=== PATIENT | male | born 1980 | race Caucasian/White ===

== ENCOUNTER → 2020-03-18 | Outpatient (CLI) | payer OTHER ==
--- NOTE | 2020-03-18 08:22 | US ---
EXAMINATION TYPE: US carotid duplex BILAT DATE OF EXAM: 03/18/2020 COMPARISON: NONE CLINICAL HISTORY: R47.1 dysarthria. No HTN EXAM MEASUREMENTS: RIGHT: Peak Systolic Velocity (PSV) cm/sec ----- Right CCA: 130 ----- Right ICA: 107 ----- Right ECA: 126 ICA/CCA ratio: 0.8 RIGHT: End Diastole cm/sec ----- Right CCA: 38.1 ----- Right ICA: 25.1 ----- Right ECA: 21.7 LEFT: Peak Systolic Velocity (PSV) cm/sec ----- Left CCA: 96.0 ----- Left ICA: 101 ----- Left ECA: 106 ICA/CCA ratio: 1.1 LEFT: End Diastole cm/sec ----- Left CCA: 27.6 ----- Left ICA: 38.4 ----- Left ECA: 25.8 VERTEBRALS (direction of flow): Right Vertebral: Antegrade Left Vertebral: Antegrade Rhythm: Normal No wall thickening, significant stenosis or plaque visualized. Grayscale, color Doppler, spectral D oppler imaging performed of the carotid arteries. Waveform analysis does not show significant stenosis of the internal carotid arteries. IMPRESSION: No hemodynamic significant stenosis of the proximal internal carotid arteries by Doppler criteria, an indirect measurement of carotid stenosis
== END | disposition home or self-care (01) ==
LOC: RADUSWWP 06:45
PROVIDERS: ATTEND Family Medicine
DX: R47.1 Dysarthria and anarthria (principal); R41.841 Cognitive communication deficit
CPT/HCPCS: 93880

== ENCOUNTER → 2020-03-19 | Outpatient (CLI) | payer OTHER ==
--- NOTE | 2020-03-19 20:27 | ECHOF ---
Referral Reason:R47.1 MEASUREMENTS -------- HEIGHT: 170.2 cm WEIGHT: 81.6 kg BP: IVSd: 0.9 cm (0.6 - 1.1) LVIDd: 4.5 cm (3.9 - 5.3) LVPWd: 1.2 cm (0.6 - 1.1) IVSs: 1.7 cm LVIDs: 2.6 cm LVPWs: 1.8 cm RVIDd: 2.7 cm (< 3.3) Ao Diam: 2.8 cm (2.0 - 3.7) LA Diam: 2.8 cm (2.7 - 3.8) AV Cusp: 1.8 cm (1.5 - 2.6) EPSS: 1.4 cm MV E Tim: 0.93 m/s MV DecT: 209 ms MV A Tim: 0.81 m/s MV E/A Ratio: 1.15 RAP: 5.00 mmHg RVSP: 24.18 mmHg MV EF SLOPE: 70.80 mm/s (70 - 150) MV EXCURSION: 18.05 mm (> 18.000) FINDINGS -------- Sinus rhythm. This was a technically good study. The left ventricular size is normal. There is mild concentric left ventricular hypertrophy. Overa ll left ventricular systolic function is normal with, an EF between 55 - 60 %. The diastolic fillin g pattern is normal for the age of the patient 9.81. The right ventricle is normal in size. The left atrial size is normal. The right atrial size is normal. Interatrial and interventricular septum intact. The aortic valve is trileaflet and appears structurally normal. The mitral valve is normal. There is trace mitral regurgitation. The tricuspid valve appears structurally normal. Mild tricuspid regurgitation present. Right vent ricular systolic pressure is normal at < 35 mmHg. The pulmonic valve is normal. The aortic root size is normal. Normal inferior vena cava with normal inspiratory collapse consistent with estimated right atrial pre ssure of 5 mmHg. There is no pericardial effusion. CONCLUSIONS -------- 1. Sinus rhythm. 2. This was a technically good study. 3. The left ventricular size is normal. 4. There is mild concentric left ventricular hypertrophy. 5. Overall left ventricular systolic function is normal with, an EF between 55 - 60 %. 6. The diastolic filling pattern is normal for the age of the patient 9.81 7. The right ventricle is normal in size. 8. The left atrial size is normal. 9. The right atrial size is normal. 10. Interatrial and interventricular septum intact. 11. The aortic valve is trileaflet and appears structurally normal. 12. The mitral valve is normal. 13. There is trace mitral regurgitation. 14. The tricuspid valve appears structurally normal. 15. Mild tricuspid regurgitation present. 16. Right ventricular systolic pressure is normal at < 35 mmHg. 17. The pulmonic valve is normal. 18. The aortic root size is normal. 19. Normal inferior vena cava with normal inspiratory collapse consistent with estimated right atrial pressure of 5 mmHg. 20. There is no pericardial effusion. [employer] MANAGER: Candace Aguirre RDCS
== END | disposition home or self-care (01) ==
LOC: RADECHMAIN 10:31
PROVIDERS: ATTEND Family Medicine
DX: I07.1 Rheumatic tricuspid insufficiency (principal)
CPT/HCPCS: 93306

== ENCOUNTER 2020-08-13 10:45 | Emergency (ER) | payer OTHER ==
[2020-08-13 11:07] VITALS: BP 134/87; PULSE 108; RESP 18; TEMP 98
[2020-08-13] MEDS ORDERED: SODIUM CHLORIDE 0.9% 2,000 ML IV STA (11:54)
[2020-08-13 12:22] LABS: Appearance,Urine Clear (Clear); Bilirubin,Urine Negative (Negative); Blood,Urine Negative (Negative); Color,Urine Yellow; Glucose,Urine (UA) Negative (Negative); Ketones,Urine Negative (Negative); Leukocyte Esterase,Urine Negative (Negative); Nitrite,Urine Negative (Negative); PH, Urine 5.5 (5.0-8.0); Protein,Urine Negative (Negative); Specific Gravity,Urine 1.012 (1.001-1.035); Urobilinogen,Urine <2.0 mg/dL (<2.0)
[2020-08-13 12:23] LABS: Basophils # (A) 0.1 k/uL (0-0.2); Basophils % (A) 1 %; Eosinophils # (A) 0.2 k/uL (0-0.7); Eosinophils % (A) 2 %; HCT 45.7 % (39.0-53.0); HGB 14.6 gm/dL (13.0-17.5); Lymphocytes # (A) 1.1 k/uL (1.0-4.8); Lymphocytes % (A) 11 %; MCH 29.2 pg (25.0-35.0); MCV 91.3 fL (80.0-100.0); Mean Platelet Volume 9.2; Monocytes # (A) 0.5 k/uL (0-1.0); Monocytes % (A) 6 %; Neutrophils # (A) 7.4 k/uL (1.3-7.7); Neutrophils % (A) 79 %; Platelet Count 249 k/uL (150-450); RDW 15.2 % (11.5-15.5); WBC 9.3 k/uL (3.8-10.6)
[2020-08-13 12:34] LABS: ALT 22 U/L (4-49); AST 37 U/L (17-59); African American GFR (CKD) >90 (>60 ml/min/1.73 sqM); Albumin 4.1 g/dL (3.5-5.0); Alkaline Phosphatase 89 U/L (38-126); Amylase 94 U/L (30-110); Anion Gap 9 mmol/L; Blood Urea Nitrogen 10 mg/dL (9-20); Calcium 8.8 mg/dL (8.4-10.2); Carbon Dioxide 22 mmol/L (22-30); Chloride 107 mmol/L (98-107); Glucose 91 mg/dL (74-99); Non-African American GFR(CKD) 89 (>60 ml/min/1.73 sqM); Potassium 5.1 mmol/L (3.5-5.1); Sodium 138 mmol/L (137-145); Total Bilirubin 0.6 mg/dL (0.2-1.3); Total Protein 8.1 g/dL (6.3-8.2)
[2020-08-13] MEDS ORDERED: KETOROLAC 15 MG/ML 1 ML VIAL IVP STA (12:55)
--- NOTE | 2020-08-13 13:11 | XR ---
EXAMINATION TYPE: XR KUB DATE OF EXAM: 08/13/2020 12:32 PM CLINICAL HISTORY: Abdominal pain. Right-sided abdominal pain. History of stones. TECHNIQUE: Upright images of the abdomen and pelvis were obtained COMPARISON: None. FINDINGS: Nonspecific bowel gas pattern with a paucity of bowel gas. There is a 3 mm calcification ov erlying the right renal lower pole. Additional too millimeter and punctate densities overlying the ri ght kidney may be related to nephrolithiasis versus bowel contents. 2 mm calcification overlying the right hemipelvis. There is a 3 mm calcification overlying the left renal shadow. Lung bases are clear . No pneumoperitoneum. No organomegaly. Osseous structures are intact. IMPRESSION: 1. Bilateral nephrolithiasis as above. 2. 2 mm calcification over the right hemipelvis may represent urolithiasis versus phlebolith. 3. Nonspecific bowel gas pattern.
--- NOTE | 2020-08-13 13:20 | ED ---
Abdominal Pain HPI - General Chief Complaint: Abdominal Pain Stated Complaint: kidney stone Time Seen by Provider: 08/13/20 11:35 Source: patient, RN notes reviewed Mode of arrival: ambulatory Limitations: no limitations - History of Present Illness Initial Comments: This a 40-year-old male presents emergency Department chief complaint of severe right flank pain. Patient states that he passed a stone. He is ago and states that he thought it better but states ice really thirsty, having continuation of pain and just feels off. Patient states that he does have a long history of kidney stones no prior procedures was denies any history of gallbladder disease or prior appendectomy. Denies any change in bowel habits no diarrhea no constipation. Patient states that he is on Humira for rheumatoid arthritis. Patient denies any fevers or chills he states he's had recent nausea and vomiting. - Related Data Home Medications Medication Instructions Recorded Confirmed Ibuprofen [Motrin] 800 mg PO TID PRN 07/07/16 08/13/20 Omeprazole 40 mg PO AC-BRKFST 07/07/16 08/13/20 Adalimumab [Humira Crohn's] 40 mg SQ Q14D 08/13/20 08/13/20 Aspirin EC [Ecotrin] 325 mg PO DAILY 08/13/20 08/13/20 Cholecalciferol [Vitamin D3 (25 1,000 unit PO DAILY 08/13/20 08/13/20 Mcg = 1000 Iu)] Ipratropium-Albuterol Nebulize 3 ml INHALATION RT-Q4H PRN 08/13/20 08/13/20 [Duoneb 0.5 mg-3 mg/3 ml Soln] Levothyroxine Sodium [Synthroid] 150 mcg PO DAILY 08/13/20 08/13/20 Sildenafil Citrate [Viagra] 25 mg PO DAILY PRN 08/13/20 08/13/20 Vitamin B Complex 1 cap PO DAILY 08/13/20 08/13/20 Previous Rx's Medication Instructions Recorded Ibuprofen [Motrin] 600 mg PO Q8HR PRN #20 tab 08/13/20 Ondansetron Odt [Zofran Odt] 4 mg PO Q8HR PRN #10 tab 08/13/20 Tamsulosin [Flomax] 0.4 mg PO DAILY #7 cap 08/13/20 Allergies Allergy/AdvReac Type Severity Reaction Status Date / Time No Known Allergies Allergy Verified 08/13/20 12:35 Review of Systems ROS Statement: Those systems with pertinent positive or pertinent negative responses have been documented in the HPI. ROS Other: All systems not noted in ROS Statement are negative. Past Medical History Past Medical History: GERD/Reflux, Respiratory Disorder, Rheumatoid Arthritis (RA), Thyroid Disorder Additional Past Medical History / Comment(s): LUPUS, RESTRICTED LUNG DISEASE, RHEUMATOID ARTHRITIS, HYPOTHYROID. , INSOMNIA. History of Any Multi-Drug Resistant Organisms: None Reported Past Surgical History: No Surgical Hx Reported Additional Past Surgical History / Comment(s): EGD Past Anesthesia/Blood Transfusion Reactions: No Reported Reaction Past Psychological History: Anxiety Smoking Status: Former smoker Past Alcohol Use History: Occasional Past Drug Use History: None Reported - Past Family History Mother Family Medical History: No Reported History General Exam Limitations: no limitations General appearance: alert, in no apparent distress Head exam: Present: atraumatic, normocephalic, normal inspection Eye exam: Present: normal appearance, PERRL, EOMI. Absent: scleral icterus, conjunctival injection, periorbital swelling ENT exam: Present: normal exam, mucous membranes moist Neck exam: Present: normal inspection, full ROM. Absent: tenderness, meningismus, lymphadenopathy Respiratory exam: Present: normal lung sounds bilaterally. Absent: respiratory distress, wheezes, rales, rhonchi, stridor Cardiovascular Exam: Present: regular rate, normal rhythm, normal heart sounds. Absent: systolic murmur, diastolic murmur, rubs, gallop, clicks GI/Abdominal exam: Present: soft, tenderness (Mild right-sided), normal bowel sounds. Absent: distended, guarding, rebound, rigid Back exam: Absent: CVA tenderness (R), CVA tenderness (L) Skin exam: Present: warm, dry, intact, normal color. Absent: rash Course Vital Signs 08/13/20 11:04 Temperature 98.0 F Pulse Rate 108 H Respiratory 18 Rate Blood Pressure 134/87 O2 Sat by Pulse 96 Oximetry Medical Decision Making - Medical Decision Making This a 40-year-old male presented emergency from for right-sided pain. Labs urinalysis unremarkable patient does need to have pain CT is obtained which shows evidence of 45, UVJ stone with no delay in pain. Patient states has questionable minimal changes though patient has no acute respiratory symptoms. Patient afebrile. Patient has underlying ongoing disease. Patient will be discharged in stable condition with pain medication will follow-up with urology and return for any worsening symptoms. - Lab Data Result diagrams: 08/13/20 12:10 08/13/20 12:10 Lab Results 08/13/20 08/13/20 08/13/20 Range/Units 12:10 12:10 12:10 WBC 9.3 (3.8-10.6) k/uL RBC 5.00 (4.30-5.90) m/uL Hgb 14.6 (13.0-17.5) gm/dL Hct 45.7 (39.0-53.0) % MCV 91.3 (80.0-100.0) fL MCH 29.2 (25.0-35.0) pg MCHC 32.0 (31.0-37.0) g/dL RDW 15.2 (11.5-15.5) % Plt Count 249 (150-450) k/uL Neutrophils % 79 % Lymphocytes % 11 % Monocytes % 6 % Eosinophils % 2 % Basophils % 1 % Neutrophils # 7.4 (1.3-7.7) k/uL Lymphocytes # 1.1 (1.0-4.8) k/uL Monocytes # 0.5 (0-1.0) k/uL Eosinophils # 0.2 (0-0.7) k/uL Basophils # 0.1 (0-0.2) k/uL Sodium 138 (137-145) mmol/L Potassium 5.1 (3.5-5.1) mmol/L Chloride 107 (98-107) mmol/L Carbon Dioxide 22 (22-30) mmol/L Anion Gap 9 mmol/L BUN 10 (9-20) mg/dL Creatinine 1.05 (0.66-1.25) mg/dL Est GFR (CKD-EPI)AfAm >90 (>60 ml/min/1.73 sqM) Est GFR (CKD-EPI)NonAf 89 (>60 ml/min/1.73 sqM) Glucose 91 (74-99) mg/dL Calcium 8.8 (8.4-10.2) mg/dL Total Bilirubin 0.6 (0.2-1.3) mg/dL AST 37 (17-59) U/L ALT 22 (4-49) U/L Alkaline Phosphatase 89 (38-126) U/L Total Protein 8.1 (6.3-8.2) g/dL Albumin 4.1 (3.5-5.0) g/dL Amylase 94 (30-110) U/L Lipase 73 (23-300) U/L Urine Color Yellow Urine Appearance Clear (Clear) Urine pH 5.5 (5.0-8.0) Ur Specific [place] 1.012 (1.001-1.035) Urine Protein Negative (Negative) Urine Glucose (UA) Negative (Negative) Urine Ketones Negative (Negative) Urine Blood Negative (Negative) Urine Nitrite Negative (Negative) Urine Bilirubin Negative (Negative) Urine Urobilinogen <2.0 (<2.0) mg/dL Ur Leukocyte Esterase Negative (Negative) Disposition Clinical Impression: Right ureteral calculus Disposition: HOME SELF-CARE Condition: Stable Instructions (If sedation given, give patient instructions): Kidney Stones (ED) Additional Instructions: Please return to the Emergency Department if symptoms worsen or any other concerns. Prescriptions: Tamsulosin [Flomax] 0.4 mg PO DAILY #7 cap Ibuprofen [Motrin] 600 mg PO Q8HR PRN #20 tab PRN Reason: Pain Ondansetron Odt [Zofran Odt] 4 mg PO Q8HR PRN #10 tab PRN Reason: Nausea Is patient prescribed a controlled substance at d/c from ED?: No Referrals: Tolu Tidwell Jr, DO [Primary Care Provider] - 1-2 days Steven Chappell MD [STAFF PHYSICIAN] - 1-2 days Time of Disposition: 14:45
--- NOTE | 2020-08-13 14:42 | CT ---
EXAMINATION TYPE: CT abdomen pelvis w con DATE OF EXAM: 08/13/2020 COMPARISON: Same day abdominal x-ray. HISTORY: Kidney stone CT DLP: 976.2 mGycm, Automated Exposure Control for Dose Reduction was Utilized. CONTRAST: CT scan of the abdomen and pelvis is performed with oral and with IV Contrast, patient injected with 100 mL of Isovue 300. FINDINGS: LUNG BASES: Areas of reticulation and groundglass opacities in the lung bases more prominent posterio rly. LIVER/GB: No significant abnormality is appreciated. PANCREAS: No significant abnormality is seen. SPLEEN: Spleen size upper limits of normal at 13.0 cm long axis coronal image 59. ADRENALS: No significant abnormality is seen. KIDNEYS: Small nonobstructing renal calculi noted bilaterally. Proximally 10 scattered calculi throug hout the right kidney to 4 to 5 mm in size lower pole level axial image 46. Approximately 5-8 small c alculi measuring up to 3 to 4 mm in size scattered throughout the left kidney. Symmetric cortical upt vinicius and excretion with perhaps mild right-sided hydronephrosis noted. There is 4 to 5 mm distal right ureteral calculus axial image 79 present. BOWEL: No suspicious small or large bowel dilatation. Gas filled dilated distal esophagus with abru pt transition at the diaphragmatic hiatus. PROSTATE/SEMINAL VESICLES: No gross abnormality seen. LYMPH NODES: No greater than 1cm abdominal or pelvic lymph nodes are appreciated. OSSEOUS STRUCTURES: Transitional-type vertebra at lumbosacral junction. OTHER: No significant additional abnormality is seen. IMPRESSION: 1. There is 4 to 5 mm distal right ureter calculus right before UVJ causing mild to minimal right-emily ed hydronephrosis but not delayed excretion. There are multiple small nonobstructing renal calculi bi laterally confirmed. 2. Areas of reticulation and increased groundglass opacity in the bilateral lower lungs, correlate fo r acute infectious process. Gas-filled dilated distal esophagus with abrupt transition at the diaphra gmatic hiatus. Consider underlying stricture and aspiration pneumonia. Correlate clinically. Consider endoscopy follow-up.
[2020-08-13] MEDS ORDERED: ACET/COD 300 MG/30 MG STARTER PACK 6 TAB BTL PO STA (14:45)
== END 2020-08-13 15:17 | disposition home or self-care (01) ==
LOC: EC 10:45
DX: N13.2 Hydronephrosis with renal and ureteral calculous obstruction (principal); K21.9 Gastro-esophageal reflux disease without esophagitis; E07.9 Disorder of thyroid, unspecified; Z79.890 Hormone replacement therapy; Z79.82 Long term (current) use of aspirin; Z79.899 Other long term (current) drug therapy; Z87.891 Personal history of nicotine dependence
CPT/HCPCS: 36415; 80053; 82150; 83690; 85025; 81003; 74018; 74177; 99284; 96374; 96361 ×3; J1885; Q9967

== ENCOUNTER 2020-09-21 09:53 | Inpatient (IN) | payer OTHER ==
[2020-09-21] MEDS ORDERED: methylPREDNISolone SOD SUCCI 125 MG/2 ML VIAL IV STA (10:23)
[2020-09-21] MEDS ORDERED: IPRATROPIUM-ALBUTEROL 3 ML NEB INHALATION STA (10:23)
--- NOTE | 2020-09-21 10:40 | ED ---
SOB HPI - General Chief Complaint: Shortness of Breath Stated Complaint: SOB Time Seen by Provider: 09/21/20 10:10 Source: patient Mode of arrival: ambulatory Limitations: no limitations - History of Present Illness Initial Comments: Patient is a 40-year-old male, with history of lupus, RA, scleroderma, asthma, presenting to the emergency Department with complaints of shortness of breath 3 days. Patient states he's been trying his at home nebulizer treatments without much improvement in his symptoms. He denies having a fever but has been having chills. He denies any abdominal pain, nausea, vomiting, diarrhea, chest pains. He is currently speaking in about 4-5 word sentences, in mild distress. Patient denies any sick contacts. Patient denies any other complaints at this time.Upon arrival to the ER, patient's temperature is 99.2, pulse 120, respiratory rate of 20, BP is 138/95, 92% room air. - Related Data Home Medications Medication Instructions Recorded Confirmed Omeprazole 40 mg PO AC-BRKFST 07/07/16 09/21/20 Adalimumab [Humira Crohn's] 40 mg SQ Q14D 08/13/20 09/21/20 Ipratropium-Albuterol Nebulize 3 ml INHALATION RT-Q4H PRN 08/13/20 09/21/20 [Duoneb 0.5 mg-3 mg/3 ml Soln] Levothyroxine Sodium [Synthroid] 150 mcg PO DAILY 08/13/20 09/21/20 Sildenafil Citrate [Viagra] 25 mg PO DAILY PRN 08/13/20 09/21/20 Albuterol Nebulized [Ventolin 2.5 mg INHALATION RT-Q6H PRN 09/21/20 09/21/20 Nebulized] Albuterol Sulfate [Proair Hfa] 1 - 2 puff INHALATION RT-QID PRN 09/21/2009/21 Cranberry Fruit Extract [Cranberry] 500 mg PO DAILY 09/21/20 09/21/20 Thiamine [Vitamin B-1] 50 mg PO DAILY 09/21/20 09/21/20 Previous Rx's Medication Instructions Recorded Ibuprofen [Motrin] 600 mg PO Q8HR PRN #20 tab 08/13/20 Allergies Allergy/AdvReac Type Severity Reaction Status Date / Time No Known Allergies Allergy Verified 09/21/20 11:31 Review of Systems ROS Statement: Those systems with pertinent positive or pertinent negative responses have been documented in the HPI. ROS Other: All systems not noted in ROS Statement are negative. Past Medical History Past Medical History: GERD/Reflux, Respiratory Disorder, Rheumatoid Arthritis (RA), Thyroid Disorder Additional Past Medical History / Comment(s): LUPUS, RESTRICTED LUNG DISEASE, RHEUMATOID ARTHRITIS, HYPOTHYROID. , INSOMNIA. History of Any Multi-Drug Resistant Organisms: None Reported Past Surgical History: No Surgical Hx Reported Additional Past Surgical History / Comment(s): EGD Past Anesthesia/Blood Transfusion Reactions: No Reported Reaction Past Psychological History: Anxiety Smoking Status: Former smoker Past Alcohol Use History: Occasional Past Drug Use History: None Reported - Past Family History Mother Family Medical History: No Reported History General Exam - General Exam Comments Initial Comments: GENERAL: Patient is well-developed and well-nourished. Patient is nontoxic and in [id number] distress, increases with speaking. HEAD: Atraumatic, normocephalic. EYES: Pupils equal round and reactive to light, extraocular movements intact, sclera anicteric, conjunctiva are normal. Eyelids were unremarkable. ENT: TMs normal, nares patent, oropharynx clear without exudates. Moist mucous membranes. NECK: Normal range of motion, supple without lymphadenopathy or JVD. LUNGS: Mild labored respirations. Decreased air movement, No wheezes rales or rhonchi. HEART: Tachycardia rate and rhythm without murmurs, rubs or gallops. ABDOMEN: Soft, nontender, normoactive bowel sounds. No guarding, no rebound. No masses appreciated. : Deferred MUSCULOSKELETAL: Normal extremities with adequate strength and normal range of motion, no pitting or edema. No clubbing or cyanosis. NEUROLOGICAL: Patient is alert and oriented x 3. Motor and sensory are also intact. Cranial nerves II through XII grossly intact. Symmetrical smile. Normal speech, normal gait. PSYCH: Normal mood, normal affect. SKIN: Warm, Dry, normal turgor, no rashes or lesions noted. Limitations: no limitations Course Vital Signs 09/21/20 09/21/20 09/21/20 10:00 10:37 10:39 Temperature 99.2 F Pulse Rate 120 H 113 H Respiratory 20 22 Rate Blood Pressure 138/95 O2 Sat by Pulse 92 L Oximetry 09/21/20 09/21/20 10:55 13:07 Temperature Pulse Rate 110 H 86 Respiratory 16 Rate Blood Pressure 138/60 O2 Sat by Pulse 96 Oximetry Medical Decision Making - Medical Decision Making Patient is a 40-year-old male with history of lupus, asthma, sclera derma, presents with shortness of breath or sitting 3 days. He did arrive tachycardia, 92% on room air, afebrile. When the patient arrived he was in mild distress, increases when trying to speak long sentences. Breathing treatment did help slightly. Patient's white count is 21,000, he denies any recent steroid use. D-dimer is normal, lactic acid is 1.3, CRP is 47, LDH is 817, rapid Covid is negative, influenza is negative. Chest x-ray shows low lung volumes with faint multifocal bilateral opacities, correlate for Covid 19 infection. Patient continues to be slightly hypoxic, 98-92% on room air, which did start 2 L of oxygen on him. Patient will be admitted for dyspnea, suspected Covid 19 pneumonia, hypoxia. I did give a dose of Rocephin and azithromycin. Patient accepted by Dr. Calderon. Case discussed with Dr. Tobar. - Lab Data Result diagrams: 09/21/20 10:24 09/21/20 10:24 Lab Results 09/21/20 09/21/20 09/21/20 Range/Units 10:24 10:24 10:24 WBC 21.6 H (3.8-10.6) k/uL RBC 5.44 (4.30-5.90) m/uL Hgb 15.7 (13.0-17.5) gm/dL Hct 47.0 (39.0-53.0) % MCV 86.4 (80.0-100.0) fL MCH 28.9 (25.0-35.0) pg MCHC 33.4 (31.0-37.0) g/dL RDW 14.6 (11.5-15.5) % Plt Count 322 (150-450) k/uL MPV 8.7 Neutrophils % 91 % Lymphocytes % 5 % Monocytes % 3 % Eosinophils % 1 % Basophils % 1 % Neutrophils # 19.6 H (1.3-7.7) k/uL Lymphocytes # 1.0 (1.0-4.8) k/uL Monocytes # 0.6 (0-1.0) k/uL Eosinophils # 0.1 (0-0.7) k/uL Basophils # 0.1 (0-0.2) k/uL PT (9.0-12.0) sec INR (<1.2) APTT (22.0-30.0) sec D-Dimer (<0.60) mg/L FEU Sodium 135 L (137-145) mmol/L Potassium 4.6 (3.5-5.1) mmol/L Chloride 103 (98-107) mmol/L Carbon Dioxide 21 L (22-30) mmol/L Anion Gap 11 mmol/L BUN 14 (9-20) mg/dL Creatinine 1.15 (0.66-1.25) mg/dL Est GFR (CKD-EPI)AfAm >90 (>60 ml/min/1.73 sqM) Est GFR (CKD-EPI)NonAf 80 (>60 ml/min/1.73 sqM) Glucose 125 H (74-99) mg/dL Plasma Lactic Acid Karl 1.3 (0.7-2.0) mmol/L Calcium 9.9 (8.4-10.2) mg/dL Magnesium 1.5 L (1.6-2.3) mg/dL Total Bilirubin 1.3 (0.2-1.3) mg/dL AST 40 (17-59) U/L ALT 28 (4-49) U/L Alkaline Phosphatase 96 (38-126) U/L Lactate Dehydrogenase 817 H (313-618) U/L C-Reactive Protein 47.6 H (<10.0) mg/L Total Protein 8.9 H (6.3-8.2) g/dL Albumin 4.5 (3.5-5.0) g/dL Coronavirus (PCR) (Not Detectd) Influenza Type A RNA (Not Detectd) Influenza Type B (PCR) (Not Detectd) 09/21/20 09/21/20 09/21/20 Range/Units 10:24 10:25 10:33 WBC (3.8-10.6) k/uL RBC (4.30-5.90) m/uL Hgb (13.0-17.5) gm/dL Hct (39.0-53.0) % MCV (80.0-100.0) fL MCH (25.0-35.0) pg MCHC (31.0-37.0) g/dL RDW (11.5-15.5) % Plt Count (150-450) k/uL MPV Neutrophils % % Lymphocytes % % Monocytes % % Eosinophils % % Basophils % % Neutrophils # (1.3-7.7) k/uL Lymphocytes # (1.0-4.8) k/uL Monocytes # (0-1.0) k/uL Eosinophils # (0-0.7) k/uL Basophils # (0-0.2) k/uL PT 10.8 (9.0-12.0) sec INR 1.0 (<1.2) APTT 27.3 (22.0-30.0) sec D-Dimer 0.48 (<0.60) mg/L FEU Sodium (137-145) mmol/L Potassium (3.5-5.1) mmol/L Chloride (98-107) mmol/L Carbon Dioxide (22-30) mmol/L Anion Gap mmol/L BUN (9-20) mg/dL Creatinine (0.66-1.25) mg/dL Est GFR (CKD-EPI)AfAm (>60 ml/min/1.73 sqM) Est GFR (CKD-EPI)NonAf (>60 ml/min/1.73 sqM) Glucose (74-99) mg/dL Plasma Lactic Acid Karl (0.7-2.0) mmol/L Calcium (8.4-10.2) mg/dL Magnesium (1.6-2.3) mg/dL Total Bilirubin (0.2-1.3) mg/dL AST (17-59) U/L ALT (4-49) U/L Alkaline Phosphatase (38-126) U/L Lactate Dehydrogenase (313-618) U/L C-Reactive Protein (<10.0) mg/L Total Protein (6.3-8.2) g/dL Albumin (3.5-5.0) g/dL Coronavirus (PCR) Not Detected (Not Detectd) Influenza Type A RNA Not Detected (Not Detectd) Influenza Type B (PCR) Not Detected (Not Detectd) - EKG Data EKG Comments: Sinus tach otherwise a normal ECG, there are Q waves in lead 3 and s waves lead 1. Ventricular rate 1:15, KS interval 152, QT 320. Disposition Clinical Impression: Suspected COVID-19 virus infection, Pneumonia, Hypoxic, Leukocytosis Disposition: ADMITTED IP TO THIS HOSP Condition: Good Decision Date: 09/21/20 Decision Time: 12:27
[2020-09-21 10:51] LABS: Basophils # (A) 0.1 k/uL (0-0.2); Basophils % (A) 1 %; Eosinophils # (A) 0.1 k/uL (0-0.7); Eosinophils % (A) 1 %; HGB 15.7 gm/dL (13.0-17.5); Lymphocytes % (A) 5 %; MCH 28.9 pg (25.0-35.0); MCHC 33.4 g/dL (31.0-37.0); MCV 86.4 fL (80.0-100.0); Mean Platelet Volume 8.7; Monocytes # (A) 0.6 k/uL (0-1.0); Monocytes % (A) 3 %; Neutrophils # (A) 19.6 k/uL (1.3-7.7); Neutrophils % (A) 91 %; Platelet Count 322 k/uL (150-450); RBC 5.44 m/uL (4.30-5.90); RDW 14.6 % (11.5-15.5); WBC 21.6 k/uL (3.8-10.6)
--- NOTE | 2020-09-21 10:59 | XR ---
EXAMINATION TYPE: XR chest 2V DATE OF EXAM: 09/21/2020 COMPARISON: NONE HISTORY: Shortness of breath for 3 days. History of asthma and lupus. TECHNIQUE: Frontal and lateral views of the chest are obtained. FINDINGS: There are low lung volumes with faint bilateral multifocal opacities. No pleural effusion or pneumothorax seen bilaterally. The cardiac silhouette size is within normal limits. The osseous structures are intact. IMPRESSION: Low lung volumes with faint multifocal bilateral opacities, correlate for covid-19 infec tion.
[2020-09-21 11:05] LABS: ALT 28 U/L (4-49); AST 40 U/L (17-59); African American GFR (CKD) >90 (>60 ml/min/1.73 sqM); Albumin 4.5 g/dL (3.5-5.0); Alkaline Phosphatase 96 U/L (38-126); Anion Gap 11 mmol/L; Blood Urea Nitrogen 14 mg/dL (9-20); Calcium 9.9 mg/dL (8.4-10.2); Carbon Dioxide 21 mmol/L (22-30); Chloride 103 mmol/L (98-107); Glucose 125 mg/dL (74-99); LDH 817 U/L (313-618); Magnesium 1.5 mg/dL (1.6-2.3); Non-African American GFR(CKD) 80 (>60 ml/min/1.73 sqM); Potassium 4.6 mmol/L (3.5-5.1); Sodium 135 mmol/L (137-145); Total Bilirubin 1.3 mg/dL (0.2-1.3); Total Protein 8.9 g/dL (6.3-8.2)
[2020-09-21 11:27] LABS: D-Dimer 0.48 mg/L FEU (<0.60); Partial Thromboplastin Time 27.3 sec (22.0-30.0); Prothrombin Time 10.8 sec (9.0-12.0)
[2020-09-21 11:58] LABS: C Reactive Protein 47.6 mg/L (<10.0)
[2020-09-21] MEDS ORDERED: PNEUMONIA PROTOCOL UTILIZED 1 EACH MISC PO PRN (12:23)
[2020-09-21] MEDS ORDERED: cefTRIAXone IN SWFI 1,000 MG/10 ML SYRINGE IVP STA (12:35)
[2020-09-21] MEDS ORDERED: AZITHROMYCIN 500 MG TAB PO STA (12:35)
[2020-09-21 16:35] LABS: Ferritin 78.1 ng/mL (22.0-322.0)
[2020-09-21] MEDS ORDERED: ACETAMINOPHEN TAB 325 MG TAB PO PRN (19:59)
[2020-09-21] MEDS: ENOXAPARIN 40 MG/0.4 ML SYRINGE SQ SCH (20:08)
[2020-09-21] MEDS: ALBUTEROL NEBULIZED 2.5 MG/3 ML INHALATION PRN (20:38)
[2020-09-22] MEDS ORDERED: LEVOTHYROXINE 75 MCG TAB PO SCH (06:00)
[2020-09-22 06:24] LABS: Basophils % (A) 0 %; Eosinophils % (A) 0 %; HCT 46.6 % (39.0-53.0); HGB 15.2 gm/dL (13.0-17.5); Lymphocytes # (A) 1.1 k/uL (1.0-4.8); Lymphocytes % (A) 10 %; MCH 28.6 pg (25.0-35.0); MCHC 32.7 g/dL (31.0-37.0); MCV 87.6 fL (80.0-100.0); Mean Platelet Volume 8.2; Monocytes # (A) 0.4 k/uL (0-1.0); Monocytes % (A) 4 %; Neutrophils # (A) 9.5 k/uL (1.3-7.7); Neutrophils % (A) 84 %; Platelet Count 300 k/uL (150-450); RBC 5.32 m/uL (4.30-5.90); RDW 14.6 % (11.5-15.5); WBC 11.3 k/uL (3.8-10.6)
[2020-09-22 06:39] LABS: D-Dimer 0.36 mg/L FEU (<0.60)
--- NOTE | 2020-09-22 07:49 | XR ---
EXAMINATION TYPE: XR chest 1V portable DATE OF EXAM: 09/22/2020 Comparison: 09/21/2020 Clinical History: 40-year-old male Pneumonia Findings: Heart normal size. Aorta and pulmonary vasculature within normal limits. Subtle patchy peripheral den sities and also at the medial right base, not significantly changed. Impression: Subtle patchy densities, right greater than left, not significantly changed.
[2020-09-22 08:15] VITALS: BP 117/76; RESP 16; TEMP 97.9
[2020-09-22] MEDS ORDERED: dexAMETHasone 2 MG TAB PO SCH (09:00)
[2020-09-22] MEDS: ENOXAPARIN 40 MG/0.4 ML SYRINGE SQ SCH (09:06)
[2020-09-22 10:08] LABS: Ferritin 80.4 ng/mL (22.0-322.0)
[2020-09-22] MEDS: ALBUTEROL NEBULIZED 2.5 MG/3 ML INHALATION PRN (11:18)
[2020-09-22 11:33] VITALS: PULSE 87
[2020-09-22 11:33] LABS: African American GFR (CKD) 96.8 (60.0-200.0); Albumin 4.4 g/dL (3.80-4.90); Albumin/Globulin Ratio 1.26 (1.60-3.17); Anion Gap 9.5 mmol/L (4.00-12.00); BUN/Creat Ratio 21.82 Ratio (12.00-20.00); C Reactive Protein 5.8 mg/dL (0.0-0.8); Carbon Dioxide 22.5 mmol/L (21.6-31.8); Globulin 3.5 g/dL (1.6-3.3); Non-African American GFR(CKD) 83.5 (60.0-200.0); Potassium 4.7 mmol/L (3.5-5.5); Total Bilirubin 0.4 mg/dL (0.3-1.2); Total Protein 7.9 g/dL (6.2-8.2)
--- NOTE | 2020-09-22 11:54 | P.CNPUL ---
History of Present Illness Reason for consult: dyspnea, cough, asthma, COPD Chief complaint: Shortness of breath and cough History of present illness: This is a 40-year-old male with history of chronic persistent severe asthma has been on nebulizer treatment at home patient is a small dose of maintenance prednisone most of the time, patient has severe scleroderma rheumatoid arthritis and also history of lupus, patient presented into the hospital with 3 day history of increasing shortness of breath and wheezing, unable to talk long sentences, patient was admitted into the hospital started on IV steroids and now this morning feeling much better afebrile hemodynamics stable, his white cell count on arrival was 21,000 now down to 11,000, normal d-dimer, chemistries stable sodium is slightly on the lower side, inflammation she parameters stable LDH slightly high came down to two thirds etc. barnett virus PCR negative influenza A and B- as well patient does have a lung fibrosis which is seen on the x-ray involving basal area appears to be stable not significantly changed compared to prior x-ray Review of Systems All systems: negative Past Medical History Past Medical History: Asthma, GERD/Reflux, Respiratory Disorder, Rheumatoid Arthritis (RA), Thyroid Disorder Additional Past Medical History / Comment(s): LUPUS, RESTRICTED LUNG DISEASE, RHEUMATOID ARTHRITIS, HYPOTHYROID. , INSOMNIA, Heart cath (no stents), scleroderma. History of Any Multi-Drug Resistant Organisms: None Reported Past Surgical History: No Surgical Hx Reported Additional Past Surgical History / Comment(s): EGD Past Anesthesia/Blood Transfusion Reactions: No Reported Reaction Smoking Status: Former smoker - Past Family History Mother Family Medical History: No Reported History Medications and Allergies Home Medications Medication Instructions Recorded Confirmed Type Omeprazole 40 mg PO AC-BRKFST 07/07/16 09/21/20 History Adalimumab [Humira Crohn's] 40 mg SQ Q14D 08/13/20 09/21/20 History Ibuprofen [Motrin] 600 mg PO Q8HR PRN #20 tab 08/13/20 09/21/20 Rx Ipratropium-Albuterol Nebulize 3 ml INHALATION RT-Q4H PRN 08/13/20 09/21/20 History [Duoneb 0.5 mg-3 mg/3 ml Soln] Levothyroxine Sodium [Synthroid] 150 mcg PO DAILY 08/13/20 09/21/20 History Sildenafil Citrate [Viagra] 25 mg PO DAILY PRN 08/13/20 09/21/20 History Albuterol Nebulized [Ventolin 2.5 mg INHALATION RT-Q6H PRN 09/21/20 09/21/20 History Nebulized] Albuterol Sulfate [Proair Hfa] 1 - 2 puff INHALATION RT-QID PRN 09/21/20 09/21/20 History Cranberry Fruit Extract [Cranberry] 500 mg PO DAILY 09/21/20 09/21/20 History Thiamine [Vitamin B-1] 50 mg PO DAILY 09/21/20 09/21/20 History Allergies Allergy/AdvReac Type Severity Reaction Status Date / Time No Known Allergies Allergy Verified 09/21/20 11:31 Physical Exam Vitals: Vital Signs Temp Pulse Pulse Resp BP BP Pulse Ox 09/22/20 11:31 87 09/22/20 11:18 84 94 L 09/22/20 08:00 97.9 F 83 16 117/76 92 L 09/22/20 02:00 97.7 F 90 20 130/91 91 L 09/21/20 20:48 109 H 09/21/20 20:40 109 H 09/21/20 20:00 97.9 F 109 H 20 127/85 92 L 09/21/20 17:15 97.6 F 104 H 18 138/94 94 L 09/21/20 13:07 86 16 138/60 96 Intake and Output 09/21/20 09/22/20 09/22/20 22:59 06:59 14:59 Other: Voiding Method Toilet # Voids 2 # Bowel Movements 1 Weight 79.832 kg - Constitutional General appearance: average body habitus, cooperative, disheveled - EENT Eyes: PERRLA Ears: bilateral: normal - Neck Neck: normal ROM Carotids: bilateral: upstroke normal Thyroid: bilateral: normal size - Respiratory Respiratory: bilateral: diminished, rales (Basal dry Rales), prolonged expir ation - Cardiovascular Heart sounds: normal: S1, S2 - Neurologic Neurologic: CNII-XII intact - Musculoskeletal Musculoskeletal: gait normal, generalized weakness, strength equal bilaterally - Psychiatric Psychiatric: A&O x's 3, appropriate affect, intact judgment & insight Results - Laboratory Findings CBC and BMP: 09/22/20 06:02 09/22/20 06:02 PT/INR, D-dimer PT 10.0 sec (9.0-12.0) 09/22/20 06:02 INR 1.0 (<1.2) 09/22/20 06:02 D-Dimer 0.36 mg/L FEU (<0.60) 09/22/20 06:02 Abnormal lab findings: Abnormal Labs 09/21/20 09/21/20 09/21/20 10:24 10:24 10:24 WBC 21.6 H Neutrophils # 19.6 H Fibrinogen Sodium 135 L Carbon Dioxide 21 L BUN/Creatinine Ratio Glucose 125 H Magnesium 1.5 L Lactate Dehydrogenase 817 H Creatine Kinase C-Reactive Protein 47.6 H Total Protein 8.9 H Globulin Albumin/Globulin Ratio Procalcitonin 0.20 H 09/22/20 09/22/20 09/22/20 06:02 06:02 06:02 WBC 11.3 H Neutrophils # 9.5 H Fibrinogen 520 H Sodium 134 L Carbon Dioxide BUN/Creatinine Ratio 21.82 H Glucose 137 H Magnesium Lactate Dehydrogenase Creatine Kinase 312 H C-Reactive Protein 5.8 H Total Protein Globulin 3.5 H Albumin/Globulin Ratio 1.26 L Procalcitonin - Diagnostic Findings Chest x-ray: report reviewed, image reviewed Assessment and Plan Assessment: Acute asthma exacerbation Chronic persistent severe asthma Bilateral basal pulmonary fibrosis Covid 19 PCR as well as flu a and B are negative Hypothyroidism History of advanced connective tissue disorder with symptoms of overlapping number tired arthritis and essentially Plan: Patient wishes to go home overall respiratory status is stable and improved, oxygenation is better, patient can be discharged home pulmonary standpoint on steroids will do 40 mg daily for 5 days then 20 mg daily for 5 days, follow up as outpatient Time with Patient: Greater than 30
--- NOTE | 2020-09-22 13:01 | P.HPIM ---
History of Present Illness H&P Date: 09/22/20 Chief Complaint: Worsening shortness of breath History and Physical and Discharge Summary This is a 40-year-old gentleman with history of chronic persistent asthma, connective tissue disorder-scleroderma,lupus, rheumatoid arthritis, gastroesophageal reflux disease, hypothyroidism, anxiety or nicotine dependence,Medical issues presented to the ER with worsening of shortness of breath, wheezing, difficulty conversing 3 days. O2 sat on room air on admission 92%. D-dimer normal, fibrinogen, LDH, C-reactive protein elevated. Tested negative for barnett virus, influenza A and B. Received IV steroids in the ER. On admission T-max 99.2, currently afebrile, WBC up to 21.6 now 11.3. Magnesium up to 2 after supplemented for a level of 1.5. Troponins negative X1. EKG reported sinus tachycardia. Chest x-ray from yesterday reporting several patchy densities right greater than left, not significantly changed. Reports feels better this morning and eager for discharge. Evaluated by pulmonary and cleared for discharge on steroid taper. Review of Systems ROS Statement: Those systems with pertinent positive or pertinent negative responses have been documented in the HPI. ROS Other: All systems not noted in ROS Statement are negative. Past Medical History Past Medical History: Asthma, GERD/Reflux, Respiratory Disorder, Rheumatoid Arthritis (RA), Thyroid Disorder Additional Past Medical History / Comment(s): LUPUS, RESTRICTED LUNG DISEASE, RHEUMATOID ARTHRITIS, HYPOTHYROID. , INSOMNIA, Heart cath (no stents), scleroderma. History of Any Multi-Drug Resistant Organisms: None Reported Past Surgical History: No Surgical Hx Reported Additional Past Surgical History / Comment(s): EGD Past Anesthesia/Blood Transfusion Reactions: No Reported Reaction Smoking Status: Former smoker - Past Family History Mother Family Medical History: No Reported History Medications and Allergies Home Medications Medication Instructions Recorded Confirmed Type Omeprazole 40 mg PO AC-BRKFST 07/07/16 09/21/20 History Adalimumab [Humira Pen 40 mg SQ Q14D 08/13/20 09/21/20 History Crohn's-Uc-Hs] Ibuprofen [Motrin] 600 mg PO Q8HR PRN #20 tab 08/13/20 09/21/20 Rx Ipratropium-Albuterol Nebulize 3 ml INHALATION RT-Q4H PRN 08/13/20 09/21/20 History [Duoneb 0.5 mg-3 mg/3 ml Soln] Levothyroxine Sodium [Synthroid] 150 mcg PO DAILY 08/13/20 09/21/20 History Sildenafil Citrate [Viagra] 25 mg PO DAILY PRN 08/13/20 09/21/20 History Albuterol Nebulized [Ventolin 2.5 mg INHALATION RT-Q6H PRN 09/21/20 09/21/20 History Nebulized] Albuterol Sulfate [Proair Hfa] 1 - 2 puff INHALATION RT-QID PRN 09/21/20 09/21/20 History Cranberry Fruit Extract [Cranberry] 500 mg PO DAILY 09/21/20 09/21/20 History Thiamine [Vitamin B-1] 50 mg PO DAILY 09/21/20 09/21/20 History predniSONE 10 mg PO DIRECTED #30 tab 09/22/20 Rx Allergies Allergy/AdvReac Type Severity Reaction Status Date / Time No Known Allergies Allergy Verified 09/21/20 11:31 Physical Exam Vitals: Vital Signs Temp Pulse Pulse Resp BP BP Pulse Ox 09/22/20 11:31 87 09/22/20 11:18 84 94 L 09/22/20 08:00 97.9 F 83 16 117/76 92 L 09/22/20 02:00 97.7 F 90 20 130/91 91 L 09/21/20 20:48 109 H 09/21/20 20:40 109 H 09/21/20 20:00 97.9 F 109 H 20 127/85 92 L 09/21/20 17:15 97.6 F 104 H 18 138/94 94 L 09/21/20 13:07 86 16 138/60 96 Intake and Output 09/21/20 09/22/20 09/22/20 22:59 06:59 14:59 Other: Voiding Method Toilet # Voids 2 # Bowel Movements 1 Weight 79.832 kg PHYSICAL EXAM: VITAL SIGNS: As above GENERAL: Sitting up in bed, no acute distress HEENT: Conjunctivae normal. eyes normal. Oral mucosa moist NECK: No JVD. No thyroid enlargement. No LNs CARDIOVASCULAR: S1, S2 regular.. No murmur RESPIRATION: Breath sounds diminished in the bases. Scattered crackles, prolonged expiration ABDOMEN: Soft, nontender . No guarding. no masses palpable. No ascites, No hepatosplenomegaly.Bowel sounds heard. LEGS: No edema. no swelling PSYCHIATRY: Alert and oriented X3, mood and affect normal. NERVOUS SYSTEM: Cranial N 2-12 grossly normal. Moves all 4 limbs. No focal deficits. Strength and sensation grossly intact.. Skin: Warm and dry, no rash Lymphatic system. No LN neck axilla. Results CBC & Chem 7: 09/22/20 06:02 09/22/20 06:02 Labs: Abnormal Lab Results - Last 24 Hours (Table) 09/21/20 09/22/20 09/22/20 Range/Units 10:24 06:02 06:02 WBC 11.3 H (3.8-10.6) k/uL Neutrophils # 9.5 H (1.3-7.7) k/uL Fibrinogen 520 H (200-500) mg/dL Sodium (135-145) mmol/L BUN/Creatinine Ratio (12.00-20.00) Ratio Glucose (70-110) mg/dL Creatine Kinase (35-257) U/L C-Reactive Protein (0.0-0.8) mg/dL Globulin (1.6-3.3) g/dL Albumin/Globulin Ratio (1.60-3.17) g/dL Procalcitonin 0.20 H (0.02-0.09) ng/mL 09/22/20 Range/Units 06:02 WBC (3.8-10.6) k/uL Neutrophils # (1.3-7.7) k/uL Fibrinogen (200-500) mg/dL Sodium 134 L (135-145) mmol/L BUN/Creatinine Ratio 21.82 H (12.00-20.00) Ratio Glucose 137 H (70-110) mg/dL Creatine Kinase 312 H (35-257) U/L C-Reactive Protein 5.8 H (0.0-0.8) mg/dL Globulin 3.5 H (1.6-3.3) g/dL Albumin/Globulin Ratio 1.26 L (1.60-3.17) g/dL Procalcitonin (0.02-0.09) ng/mL Thrombosis Risk Factor Assmnt - Choose All That Apply Any of the Below Risk Factors Present?: No Assessment and Plan Assessment: Acute asthma exacerbation patient with chronic persistent severe asthma Acute hypoxic respiratory failure, resolved Leukocytosis secondary to the above, significantly improved Pulmonary fibrosis History of advanced connective tissue disorder, Scleroderma Lupus Hypothyroidism Former nicotine dependence Plan: Continue on current medication regime, monitoring and symptomatic treatment. As mentioned above evaluated by pulmonary, cleared for discharge. Patient will be discharged home today in a stable condition with guarded prognosis on a steroid taper. The impression and plan of care has been dictated as directed. : I performed a history and examination of this patient, discussed the same with the dictator. I agree with the dictator's note ,documented as a scribe. Any additional findings or plans will be noted.
== END 2020-09-22 13:57 | disposition home or self-care (01) | DRG 202 ==
LOC: EC 09:53 → 6NMEDSUR 12:15
PROVIDERS: ADMIT Family Medicine; ATTEND Family Medicine
DX: J45.51 Severe persistent asthma with (acute) exacerbation (principal); J96.01 Acute respiratory failure with hypoxia; K50.90 Crohn's disease, unspecified, without complications; J84.10 Pulmonary fibrosis, unspecified; D72.829 Elevated white blood cell count, unspecified; E03.9 Hypothyroidism, unspecified; J44.9 Chronic obstructive pulmonary disease, unspecified; M06.9 Rheumatoid arthritis, unspecified; M34.9 Systemic sclerosis, unspecified; Z79.890 Hormone replacement therapy; Z87.891 Personal history of nicotine dependence; Z20.828 Contact with and (suspected) exposure to other viral communicable diseases; G47.00 Insomnia, unspecified; R00.0 Tachycardia, unspecified; Z79.899 Other long term (current) drug therapy
CPT/HCPCS: 36415; 71045; 71046; 80053; 82550; 82728; 83605; 83615; 83735; 83880; 84145; 84484; 85025; 85379; 85384; 85610; 85730; 86140; 87040; 87502; 87635; 93005; 94640; 94760; 96374; 96375; 99285

== ENCOUNTER → 2020-12-30 | Outpatient (CLI) | payer OTHER ==
--- NOTE | 2020-12-30 15:48 | CT ---
EXAMINATION TYPE: CT abdomen pelvis wo con DATE OF EXAM: 12/30/2020 COMPARISON: CT 08/13/2020 HISTORY: flank pain, hematuria CT DLP: 768 mGycm Automated exposure control for dose reduction was used. TECHNIQUE: Helical acquisition of images from the lung bases through the pelvis. FINDINGS: The distal esophagus is somewhat dilated with an air-fluid level present. Lack of contrast could compromise sensitivity. LUNG BASES: No significant interval change is appreciated, diffuse inte rstitial prominence, areas of bronchiectasis, some scattered groundglass opacity again seen, no pleur al or pericardial effusion. AORTA: No significant abnormality is appreciated. LIVER/GB: Liver shows low attenuation likely due to hepatic steatosis, liver at the upper limit of no rmal for size, gallbladder is normal PANCREAS: No significant abnormality is seen. SPLEEN: No significant abnormality is seen. ADRENALS: No significant abnormality is seen. KIDNEYS: Multiple nonobstructive calculi present bilaterally within the kidneys, largest measures soco roximately 6 to 7 mm the lower pole on the right, 5 to 6 mm in lower pole on the left, there are appr oximately 7 on the left and 8 on the right, there is no hydronephrosis, no ureteral calculus REPRODUCTIVE ORGANS: No significant abnormality is seen. URINARY BLADDER: No significant abnormality is seen. BOWEL: No significant abnormality is seen. The appendix is normal. FREE AIR: No Free Air is visible. ASCITES: None visible. PELVIC ADENOPATHY: None visualized. RETROPERITONEAL ADENOPATHY: No Retroperitoneal Adenopathy visible. OSSEOUS STRUCTURES: No significant abnormality is seen. IMPRESSION: BILATERAL NONOBSTRUCTIVE NEPHROLITHIASIS. INDETERMINATE LUNG ABNORMALITIES APPEARS CHRONIC, CONSIDER PULMONARY CONSULT. DISTAL ESOPHAGUS SHOWS A SIMILAR APPEARANCE COMPARED TO PRIOR EXAM AND IS INDETERM INATE, CONSIDER GASTROENTEROLOGY CONSULT.
== END ==
LOC: RADCTMAIN 15:10
PROVIDERS: ATTEND Family Medicine
DX: N20.0 Calculus of kidney (principal)
CPT/HCPCS: 74176

== ENCOUNTER → 2021-05-07 | Outpatient (CLI) | payer OTHER ==
--- NOTE | 2021-05-07 18:39 | CT ---
EXAMINATION TYPE: CT abdomen pelvis wo con DATE OF EXAM: 05/07/2021 COMPARISON: 12/30/2020 HISTORY: Follow up for renal stones. CT DLP: 426.8 mGycm Automated exposure control for dose reduction was used. TECHNIQUE: Helical acquisition of images was performed from the lung bases through the pelvis. FINDINGS: LUNG BASES: Esophagus again appears to BE distended and there is diffuse interstitial pattern with ev idence of bronchiectasis. Involves both the upper and lower lobes with the most marked findings seen involving bilateral lower lobes. Groundglass opacities are unchanged and there is evidence of basilar bronchiectasis. LIVER/GB: Liver is prominent in size of low attenuation correlate for hepatic process. No obvious gal lstone. PANCREAS: No significant abnormality is seen. SPLEEN: No significant abnormality is seen. ADRENALS: No significant abnormality is seen. KIDNEYS: No evidence of hydronephrosis. There are approximately 9 calcifications all measuring less t cobb 5 mm on the right and 8 on the left. ADENOPATHY: None visualized. OSSEOUS STRUCTURES: No significant abnormality is seen. BOWEL: Bowel gas pattern nonspecific with no obstruction. No free fluid or free air. OTHER: Bilateral fat-containing inguinal hernias. Aorta of normal caliber. IMPRESSION: 1. Numerous bilateral less than 5 mm nonobstructing renal calculi. 2. Interstitial pattern with groundglass changes and bronchiectasis involving both lung bases stable from prior exam. Pulmonary fibrosis in the differential diagnosis. Correlate for interstitial pneumon itis. 3. Persistent distention of the esophagus could be evaluated with direct visualization as clinically warranted. 4. Hepatomegaly correlate for hepatic steatosis.
== END | disposition home or self-care (01) ==
LOC: RADCTMAIN 17:50
PROVIDERS: ATTEND Family Medicine
DX: N20.0 Calculus of kidney (principal)
CPT/HCPCS: 74176

== ENCOUNTER → 2021-07-23 | Outpatient (CLI) | payer OTHER ==
--- NOTE | 2021-07-23 15:40 | US ---
EXAMINATION TYPE: US renals and bladder DATE OF EXAM: 07/23/2021 COMPARISON: CT 05/07/2021 CLINICAL HISTORY: N20.2. History of kidney stones EXAM MEASUREMENTS: Right Kidney: 10.2 x 4.2 x 4.5 cm Left Kidney: 9.7 x 4.4 x 4.8 cm Right Kidney: unable to visualize stones on today's ultrasound, no hydro Left Kidney: possible stones, echogenic foci noted without hydro, largest measuring 0.4 x 0.3 x 0.5cm Bladder: wnl There is no evidence for hydronephrosis at this point in time. No nephrolithiasis is seen in the rig ht. No masses are identified. The urinary bladder is anechoic. Bilateral ureteral jets are seen. Cortical medullary differentiation is maintained bilaterally. IMPRESSION: Bilateral nephrolithiasis seen on patient's prior CT not as well appreciated on ultrasound possibly d ue to technique, patient body habitus, left-sided nephrolithiasis is identified
== END | disposition home or self-care (01) ==
LOC: RADUSWWP 11:04
PROVIDERS: ATTEND Family Medicine
DX: N20.0 Calculus of kidney (principal)
CPT/HCPCS: 76770

== ENCOUNTER → 2022-05-10 | Outpatient (CLI) | payer OTHER ==
[2022-05-10 18:57] LABS: Creatine Kinase 116 U/L (35-257); GGT 183 U/L (0-73)
== END | disposition home or self-care (01) ==
LOC: LABWHC1 13:57
PROVIDERS: ATTEND Internal Medicine
DX: Z51.81 Encounter for therapeutic drug level monitoring (principal)
CPT/HCPCS: 36415; 82085; 82550; 82977